=== PATIENT | female | born 1940 | race Caucasian/White ===

== ENCOUNTER 2016-10-22 08:12 | Inpatient (IN) ==
--- NOTE | 2016-10-21 21:27 | Discharge Summary ---
<Thelma Ortario Weberh - Last Filed: 10/23/16 06:17> Date of Encounter: 10/23/16 - Discharge Diagnosis (1) Arthritis of knee, left Priority: Primary Status: Acute (2) HTN (hypertension) Priority: Secondary Status: Chronic Qualifiers: Hypertension type: essential hypertension Qualified Code(s): I10 - Essential (primary) hypertension (3) Obesity Priority: Secondary Status: Chronic Qualifiers: Obesity type: unspecified obesity type Obesity severity: unspecified obesity severity Qualified Code(s): E66.9 - Obesity, unspecified (4) Acute blood loss anemia Priority: Primary Status: Acute - Discharge Medications Home Medications: Alendronate Sodium [Fosamax] 70 mg PO QWEEK 01/05/16 [History] Gabapentin [Neurontin] 300 mg PO TID 01/05/16 [History] Irbesartan [Avapro] 300 mg PO PRN PRN 01/05/16 [History] Metoprolol Succinate 100 mg PO BID 01/05/16 [History] Omeprazole [PriLOSEC] 20 mg PO BID 01/05/16 [History] Triamterene/HCTZ 37.5/25mg [Dyazide] 1 tab PO DAILY 01/05/16 [History] Aspirin 81 mg PO DAILY 10/22/16 [History] Allergies/Adverse Reactions: Allergies Penicillins Adverse Reaction (Mild, Verified 10/23/16 11:09) Hives Sulfa (Sulfonamide Antibiotics) Adverse Reaction (Mild, Verified 10/23/16 11:09) Dizziness cefdinir Adverse Reaction (Verified 10/23/16 11:09) Hives clindamycin Adverse Reaction (Verified 10/23/16 11:09) Nausea Primary care physician: Montana Enriquez, - Patient Status Disposition: Transfer Inpatient Rehab Fac Condition: Good - Discharge Instructions Follow Up With: Montana Enriquez MD [Primary Care Provider] - Additional Instructions: Discharge Instructions: Total Knee Replacement Please call [facility] ([phone]), your Primary Care Physician, or report to the Emergency Room if you have any of the following symptoms: Nausea, vomiting, fever greater that 101.5, swelling, chest pain, shortness of breath, increased pain/redness/drainage/odor for your incision site, numbness/ tingling, or any other concerning symptoms. ACTIVITY:Weight-bearing as tolerated. You may progress off support (crutches or walker) as tolerated. MEDICATIONS: Upon discharge resume your home medications. Take all the medications as prescribed. Take a stool softener if taking narcotic pain medications. Stool softeners are only effective if you drink enough fluids. Drink 6-8 glass of water or fluids a day, unless this is not allowed for another health problem. Despite using stool softeners, if you haven't had a bowel movement in 3 days, please switch to a gentle laxative. Gentle laxatives are sold over the counter. You should have a bowel movement within 24 hours, if not call the office. You will be discharged from the hospital with a prescription for pain medication. You are encouraged to decrease the use of narcotic pain medication as tolerated. Should you require a refill, please call the office. [facility] prescribes narcotic pain medication for only 4-6 weeks after surgery. If you require pain medication beyond this time period, you may be referred to your Primary Care Physician or to the Pain Clinic for further evaluation. Plan ahead for refills on pain medication as many narcotics either need to be picked up at the office or mailed. It is best to call 48-72 hours in advance of needing a prescription refill so you don't run out of medication. To help control the post-operative pain, you may take NSAIDs (Aleve,Advil, Motrin, Ibuprofen, Naprosyn) or Tylenol as prescribed on the bottle in addition to the pain medication. ANTICOAGULATION (blood thinners): Continue your Aspirin, Lovenox or Coumadin as prescribed to help prevent a blood clot in the leg or in the lungs. As long as your incision remains dry and you tolerate the NSAIDs (Aleve, Advil, Motrin, ibuprofen, naprosyn), it is OK to use the NSAIDS while you are taking your anticoagulation medication. Should your incision start to drain, stop the NSAID and contact our office. Common symptoms of blood clot in the legs include: localized pain, swelling, calf tenderness, redness or discoloration of the skin. Blood clot in the lung symptoms include: shortness of breath, rapid pulse, sweating, and chest pain that worsens with deep breathing, coughing up blood, lightheadedness, feelings of anxiety. If you experience any of these symptoms notify your physician immediately, go to the emergency room, or if having trouble breathing, call 911. WOUND CARE: Leave the dressing on for 7 to 10days. You may change the dressing if it becomes saturated greater than 50%. Do not get the dressing wet at anytime. Wash your hands with antibacterial soap, rinse and dry prior to any wound care. If you have ariel the visiting nurse or rehab facility can remove the stapes 10-14 days after surgery and place steri-strips across the wound. Leave the steri-strips in place until they fall off on their won. You may let water from the shower run on top of the steri-strips. If you do not have a visiting nurse or rehab facility, you will need to return to the office at 10-14 days for the ariel to be removed. If you have itching or redness around the dressing call the office. FOLLOW-UP: Please follow up with your surgeon in the orthopedic clinic in 4 weeks from the day of surgery. If you have ariel that need to be removed, you will need to come back to the office in 10-14 days from the day of surgery. - Hospital Course Hospital course: Ms. Mcdonnell is a 76 year old female - Time Spent with Patient Total time spent providing and/or coordinating discharge services: <Viji Greenwood - Last Filed: 10/28/16 20:32> Date of Encounter: 10/25/16 Time of Encounter: 20:32 - Discharge Diagnosis (1) Arthritis of knee, left Priority: Primary Status: Acute (2) HTN (hypertension) Priority: Secondary Status: Chronic Qualifiers: Hypertension type: essential hypertension Qualified Code(s): I10 - Essential (primary) hypertension (3) Obesity Priority: Secondary Status: Chronic Qualifiers: Obesity type: unspecified obesity type Obesity severity: unspecified obesity severity Qualified Code(s): E66.9 - Obesity, unspecified Primary care physician: Montana Enriquez, - Patient Status Functional capacity at discharge: uses cane/walker Overall status at discharge: patient is back to baseline - Hospital Course Hospital course: Ms. Mcdonnell is a 76 year old female - Time Spent with Patient Total time spent providing and/or coordinating discharge services:
[2016-10-22] MEDS ORDERED: Famotidine 20 MG/2 ML VIAL IVP ONE (08:50)
[2016-10-22] MEDS ORDERED: Gabapentin 300 MG CAPSULE PO ONE (08:51)
--- NOTE | 2016-10-22 08:54 | History & Physical Report ---
Date of Encounter: 10/22/16 Time of Encounter: 08:54 24 Hour HP Update - Instructions Instructions: If the History and Physical is less than 30 days old and was completed prior to A.M. admission and or procedure and has NOT been updated on calendar day of procedure please complete this update prior to performing procedure. - Update Patient reports changes in Medical Condition: No Changes in examination, assessment, or condition: No Changes in Medication: No Preop tests/diagnostics Reviewed: Yes Surgery Remains Indicated: Yes Consent for Planned Operative Procedure(s) Verified: Yes - Pre-Operative Checklist Preoperative Checklist Indicated: No Prophylactic Antibiotic Ordered: Yes Is VTE Prophylaxis Indicated?: Yes
--- NOTE | 2016-10-22 08:59 | Anesthesia Evaluation PreOp ---
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 History: Denies Any Significant HX Other Medical History: GERD Anesthesia History: No Prior Anesthetic Complications : No Alcohol Use: none Drug use: none Medications and Allergies Acetaminophen [Tylenol] 500 mg PO Q6HR PRN 01/05/16 [History] Alendronate Sodium [Fosamax] 70 mg PO QWEEK 01/05/16 [History] Gabapentin [Neurontin] 300 mg PO TID 01/05/16 [History] Irbesartan [Avapro] 300 mg PO DAILY 01/05/16 [History] Lovastatin 40 mg PO DAILY 01/05/16 [History] Metoprolol Succinate 100 mg PO BID 01/05/16 [History] Omeprazole [PriLOSEC] 20 mg PO DAILY 01/05/16 [History] Triamterene/HCTZ 37.5/25mg [Dyazide] 1 tab PO DAILY 01/05/16 [History] Aspirin Enteric Coated [Aspirin EC] 325 mg PO DAILY #21 tablet. 10/21/16 [Rx] OxyCODONE Immed Rel [Roxicodone 5 MG] 5 - 10 mg PO Q6HR PRN #40 tablet 10/21/16 [Rx] Allergies Sulfa (Sulfonamide Antibiotics) Adverse Reaction (Verified 01/05/16 07:22) Dizziness - Meds/Allergy Pre-op Review Medications Reviewed: Yes Allergies Reviewed: Yes Beta Blockers on Current Med List: Yes (Took Metoprolol today 0630) Anesthesia Results - Labs Laboratory Tests 10/09/16 10/09/16 11:15 11:15 Hgb 11.2 L Hct 36.2 Plt Count 192 Sodium 138 Potassium 4.1 BUN 21 H Creatinine 0.91 - Imaging EKG: report reviewed (SB) Anesthesia Exam O2 Sat Height 1.65 m Weight 85.729 kg Height: 5'5 Weight: 189 lbs NPO (# of Hours): MN Pain Scale: 0 - HEENT Pupil (Motor): Pupils equal, EOMI Mallampati: II Teeth: Normal Oral Opening: Greater than 3 - BOTANICAL TECHNICAL OFFICER LOC: Oriented BOTANICAL TECHNICAL OFFICER Motor: Normal RUE, Normal LUE, Normal RLE, Normal LLE, Normal Face BOTANICAL TECHNICAL OFFICER Sensory: Normal: RUE, LUE, RLE, LLE, Face - Cardiac Rhythm: Regular Murmur: None JVD: No Carotid Bruit: No - Pulmonary Breath Sounds: bilateral Clear Respiratory Effort: Symmetrical Anesthesia Assess/Plan ASA Score: 3 Modified [place] Scale for Level of Consciousness: Cooperative, oriented, and tranquil Anesthetic Plan: General, Regional Monitoring Plan: Standard Monitors Recovery Plan: PACU (Discussed GA and RA, agrees to proceed)
[2016-10-22] MEDS ORDERED: Ringers Solution, Lactated 1,000 ML IVC SCH ×3 (09:00→13:34)
[2016-10-22] MEDS ORDERED: Albuterol 2.5 MG/3 ML NEBULIZER ONE (09:15)
[2016-10-22] MEDS ORDERED: Vancomycin 1,250 MG in D5% in Water 250 ML IVPB ONE (09:25)
[2016-10-22] MEDS ORDERED: Lidocaine -MPF 1% 2 ML VIAL ID ONE (09:25)
[2016-10-22] MEDS ORDERED: Albuterol 2.5 MG/3 ML NEBULIZER IH ONE (09:25)
[2016-10-22] MEDS ORDERED: ROPIVACAINE HCL/PF 0.5% 30 ML VIAL ONE (09:43)
[2016-10-22] MEDS ORDERED: Bupivacaine/Clonidine Syringe 1 EACH SYRINGE ONE (09:44)
[2016-10-22] MEDS ORDERED: Tetracaine/PF 20 MG/2 ML AMPUL ONE (09:53)
--- NOTE | 2016-10-22 10:28 | Anesthesia Procedures ---
Date of Encounter: 10/22/16 Time of Encounter: 10:00 Procedures: Anesthesia - Nerve Block Procedure Date: 10/22/16 Time: 10:00 Allergies/Adv Reactions: sulfa, clindamycin, pcn, cefdinir Pre-op Diagnosis: left knee arthritis Surgical Procedure: left total knee Checklist: Correct Patient Identifier, Correct procedure, History checked Correct side: Left Blood Thinner: No Monitor Applied: EKG, BP, Pulse Oximetry Supplemental Oxygen via Nasal Cannula (L/min): 2 Sedation: Versed (mg): 2 Sedation: Fentanyl (mcg): 50 Indication: Post Op Analgesia Pre-op Neuro Deficits: No Block Type: Femoral, Other (I-pack) Catheter placed: No Sterile Technique: Yes Ultrasound used: Yes Anatomy identified: Yes Visual spread of Local: Yes Neuro Stimulation: Yes Nerve Stimulator Range: 0.2 - 0.4 mA Blood on Needle Aspiration: No Smooth Injection of Local: Yes Pain with Injection of Local: No Prep: Chlorhexadine Needle: 22 x 50 mm Stimuplex, 21 x 100 mm Stimuplex Local: 0.25% Bupivicaine w/Clonidine 20 mcg/cc (with i pack), Ropivacaine (0.5 % plain 30 ml for femoral) Volume (cc): 50 Number of Attempts: 1 Complications: None/effective block Vitals: 3 Vital Signs Time 1000 1015 BP 147/87 185/64 Pulse 52 53 Resp 16 16 O2 Sat 99 100
[2016-10-22] MEDS ORDERED: *HR* Midazolam HCl 2 MG/2 ML VIAL ONE (11:29)
[2016-10-22] MEDS ORDERED: *HR* Propofol 200 MG/20 ML VIAL IVP ONE (11:29)
[2016-10-22] MEDS ORDERED: *HR* FentaNYL (PF) 100 MCG/2 ML VIAL ONE (11:29)
[2016-10-22] MEDS ORDERED: Lidocaine -MPF 2% 2 ML VIAL ONE (11:29)
[2016-10-22] MEDS ORDERED: Ondansetron 4 MG/2 ML VIAL ONE (11:30)
[2016-10-22] MEDS ORDERED: Dexamethasone 4 MG/ML VIAL ONE (11:30)
[2016-10-22] MEDS ORDERED: Ondansetron 4 MG/2 ML VIAL IVP PRN ×2 (11:33→13:34)
--- NOTE | 2016-10-22 11:43 | Orthopedic Operative Note ---
Date of procedure: 10/22/16 Pre-op diagnosis: Left knee arthritis Post-op diagnosis: same Procedure: Procedure: Left Total knee replacement Estimated blood loss: 200 cc Hardware: Metal and polyethylene replacement. Arthrex Femur: 6 Tibia: 4 PS insert: 13 Patella: 30 Exam Under anesthesia: Full flexion and extension, no instability, valgus alignment. Procedural Notes: Grade 3 arthritic changes patellofemoral joint and lateral compartment. Operative procedure: The patient was brought to the operating room and placed on the operating room table. After general anesthesia was administered the operative knee was examined. Findings were noted in the exam under anesthesia. The operative extremity was prepped and draped in sterile surgical fashion. The patient received IV antibiotics prior to skin incision. A standard midline incision was made centered over the patella. The incision was made through the skin and subcutaneous tissue. A medial parapatellar tendon approach was performed. Care was taken to preserve tissue along the medial aspect of the patella. And to protect the patella tendon. The deep MCL was released off the medial tibia. The infra patella fat pad was excised. Knee was brought into flexion. Patient noted to have grade 3 arthritic changes patellofemoral joint and lateral compartment. The entry hole was made for the intramedullary femoral guide. The guide was seated in 6 degrees of valgus. Anterior cut was made followed by the distal cut. The ACL the PCL the medial and the lateral menisci were excised. The tibia was subluxed forward. The entry hole was made for the intramedullary tibial guide. Guide was seated to resect 2 mm off the more abnormal side. The knee was brought into flexion the distal femur was sized to a 6. The femoral guide was seated, the anterior cut was made followed by the posterior condylar cut, followed by the chamfer cuts. The finishing guide was seated the box cut was made and the lug holes were drilled. The tibia was sized to a 4, the tibial tray was seated and prepared with the large drill followed by the fin cutter. Trial reduction revealed full extension no varus valgus instability with the appropriate 13 PS Radha. The patella was everted and cut was made at the level of the insertion of the quadriceps and patella tendon. The patella was sized to a 30 the guide was seated and the lug holes are drilled. Trial reduction revealed excellent patella tracking. All trial components were removed all bony surfaces were irrigated. The tibia was cemented first followed by the femur. The 13 PS Radha was seated and the knee was brought into full extension. The patella was cemented and held in place with the patellar holding clamp. After the cement had hardened, the knee sat for 2 minutes with a Betadine saline solution. The knee was then irrigated out with 2 L of pulse irrigation. The extensor mechanism was closed with #2 FiberWire suture and #2 PDS suture. The subcutaneous tissue was then irrigated and closed deep with #1 PDS suture superficially with 0 PDS suture and skin was closed with skin ariel. The patient was then placed in a sterile dressing and a postoperative brace extubated and transferred to recovery room in stable condition. Anesthesia: YARELIS Surgeon: Brandon Orta Residential Designer: Thi Patterson Condition: stable Disposition: PACU
[2016-10-22] MEDS: *HR* HYDROmorphone (PF) 1 MG/ML SYRINGE IVP PRN ×3 (12:30→12:47)
[2016-10-22] MEDS: *HR* Labetalol 100 MG/20 ML MDV IVP PRN ×2 (12:45→12:55)
--- NOTE | 2016-10-22 13:28 | Anesthesia Evaluation Post Op ---
Date of Encounter: 10/22/16 Time of Encounter: 13:15 - Vital Signs Vital Signs: Vital Signs/O2 Sat/Glucose, Most Current Temp Pulse Resp BP Pulse Ox 10/22/16 13:11 97.9 F 63 16 171/69 97 10/22/16 13:01 58 16 172/64 99 10/22/16 12:51 97.9 F 67 16 171/103 99 10/22/16 12:41 52 16 171/72 100 10/22/16 12:31 63 16 165/58 100 10/22/16 12:21 97.3 F L 68 16 139/75 100 10/22/16 09:59 57 147/87 100 10/22/16 09:31 97.9 F 52 18 181/64 97 - Lungs Lungs: Clear Ascult./Percussion - Airway Airway: Non-obstructed - Cardiovascular Regular Rate - Mental Status Mental Status: Alert & Oriented, Answers Appropriately - Pain Pain Scale: 3 - Nausea Vomiting Nausea Vomiting: Not Present - Hydration Hydration: Ice chips - Discharge PostOp Status: Transfer Patient to floor
[2016-10-22] MEDS ORDERED: Naloxone 0.4 MG/ML INJ IVP PRN (13:34)
[2016-10-22] MEDS ORDERED: (Alendronate Sodium [Fosamax] 70 MG) PO SCH (13:34)
[2016-10-22] MEDS ORDERED: MOM Conc 10 ML UD.LIQ PO PRN (13:34)
[2016-10-22] MEDS ORDERED: *HR* OxyCODONE Immed Rel 5 MG TABLET PO PRN (13:34)
[2016-10-22] MEDS ORDERED: *HR* HYDROmorphone (PF) 1 MG/ML SYRINGE IVP PRN (13:34)
[2016-10-22] MEDS ORDERED: Temazepam 15 MG CAPSULE PO PRN (13:34)
[2016-10-22] MEDS ORDERED: Sennosides 8.6 MG TABLET PO PRN (13:34)
[2016-10-22 13:38] LABS: Hematocrit 33.1 % (35.3-44.9); Hemoglobin 10.4 g/dL (11.5-15.4)
[2016-10-22] MEDS: Gabapentin 300 MG CAPSULE PO SCH ×2 (14:08→20:01)
[2016-10-22] MEDS: *HR* OxyCODONE Immed Rel 5 MG TABLET PO PRN (14:08)
[2016-10-22] MEDS ORDERED: *HR* Enoxaparin 30 MG/0.3 ML SYRINGE SQ SCH (18:00)
[2016-10-22] MEDS: *HR* Enoxaparin 30 MG/0.3 ML SYRINGE SQ SCH (18:12)
[2016-10-22] MEDS ORDERED: *HR* Promethazine 25 MG/ML VIAL ONE (19:45)
[2016-10-22] MEDS: Metoprolol XL (24 HR) Succ 50 MG TAB.ER.24H PO SCH (20:00)
[2016-10-22] MEDS: *HR* Promethazine 25 MG/ML VIAL IVP PRN (20:00)
[2016-10-23] MEDS ORDERED: Vancomycin 1,250 MG in D5% in Water 250 ML IVPB ONE ×2 (00:01→00:30)
[2016-10-23] MEDS: *HR* Enoxaparin 30 MG/0.3 ML SYRINGE SQ SCH ×2 (05:28→16:59)
[2016-10-23 05:39] LABS: Hematocrit 27.2 % (35.3-44.9)
[2016-10-23 05:40] LABS: Hemoglobin 8.7 g/dL (11.5-15.4)
[2016-10-23 06:03] LABS: BUN/Creatinine Ratio 20 (6-26); Blood Urea Nitrogen 16 mg/dL (7-20); Carbon Dioxide 28 mEq/L (19-29); Chloride 99 mEq/L (98-109); Glucose 125 mg/dL (70-99); Osmolality,Calculated 279 (280-300); Potassium 3.9 mEq/L (3.5-4.5); Sodium 133 mEq/L (136-145); eGFR For African Americans > 60 (> 60); eGFR For Non-African Americans > 60 (> 60)
--- NOTE | 2016-10-23 06:18 | Orthopedics Progress Note ---
Date of Encounter: 10/23/16 Time of Encounter: 06:18 - Assessment and Plan (1) Arthritis of knee, left Current Visit: Yes Status: Acute (2) HTN (hypertension) Current Visit: Yes Status: Chronic Qualifiers: Hypertension type: essential hypertension Qualified Code(s): I10 - Essential (primary) hypertension (3) Obesity Current Visit: Yes Status: Chronic Qualifiers: Obesity type: unspecified obesity type Obesity severity: unspecified obesity severity Qualified Code(s): E66.9 - Obesity, unspecified (4) Acute blood loss anemia Current Visit: Yes Status: Acute Subjective Interval history: Patient was seen this morning doing well without complaints. Afebrile vital signs stable. Operative extremity: Neurovascularly intact Dressing clean dry and intact Calves nontender Assessment and plan: Continue with postoperative care Hemoglobin 8.7 transfuse 1 unit Objective Vital signs: Vital Signs Temp Pulse Resp BP Pulse Ox 10/23/16 04:26 97.8 F 51 17 121/47 95 10/22/16 23:45 97.7 F 77 19 162/66 99 10/22/16 19:59 97.8 F 55 17 151/70 95 10/22/16 19:30 95 10/22/16 16:45 97.9 F 55 18 169/84 99 10/22/16 15:40 98.5 F 59 16 158/77 99 10/22/16 14:52 182/83 98 10/22/16 14:40 98.7 F 50 15 150/60 97 10/22/16 14:00 98.6 F 70 16 163/54 100 10/22/16 13:35 98.5 F 51 14 166/68 98 10/22/16 13:11 97.9 F 63 16 171/69 97 10/22/16 13:01 58 16 172/64 99 10/22/16 12:51 97.9 F 67 16 171/103 99 10/22/16 12:41 52 16 171/72 100 10/22/16 12:31 63 16 165/58 100 10/22/16 12:21 97.3 F L 68 16 139/75 100 10/22/16 09:59 57 147/87 100 10/22/16 09:31 97.9 F 52 18 181/64 97 10/22/16 09:16 97.9 F 52 18 181/64 97 Intake and Output 10/22/16 10/22/16 10/23/16 15:59 23:59 07:59 Intake Total 250 / 250 290 / 290 Output Total 200 / 200 600 / 600 Balance 50 / 50 290 / 290 -600 / -600 Intake: IV Fluids 250 / 250 Vancocin 1,250 MG In 250 / 250 Dextrose 5% 250 ML @ 167 mls/hr IVPB ONCE ONE Rx#: [id number] Oral 290 / 290 Output: Urine 600 / 600 Estimated Blood Loss 200 / 200 Other: # Voids 1 Weight 85.729 kg - Labs CBC & BMP: 10/23/16 04:50 10/23/16 04:50 Labs: Abnormal lab results Hgb 8.7 g/dL (11.5-15.4) L D 10/23/16 04:50 Hct 27.2 % (35.3-44.9) L 10/23/16 04:50 Sodium 133 mEq/L (136-145) L 10/23/16 04:50 Glucose 125 mg/dL (70-99) H 10/23/16 04:50 Calculated Osmolality 279 (280-300) L 10/23/16 04:50 Calcium 8.0 mg/dL (8.6-10.8) L 10/23/16 04:50 - VTE Documentation of Mechanical Device: Venous foot pump, device Consult Discharge Plan - Plan Referrals: Montana Enriquez MD [Primary Care Provider] -
[2016-10-23] MEDS ORDERED: Furosemide 20 MG/2 ML VIAL IVP ONE ×2 (06:21→15:15)
[2016-10-23] MEDS: Metoprolol XL (24 HR) Succ 50 MG TAB.ER.24H PO SCH ×2 (07:53→20:42)
[2016-10-23] MEDS: Aspirin 81 MG TAB.CHEW PO SCH (07:59)
[2016-10-23] MEDS: Gabapentin 300 MG CAPSULE PO SCH ×3 (07:59→20:43)
[2016-10-23] MEDS ORDERED: Alendronate Sodium [Fosamax] 70 MG PO SCH (09:00)
[2016-10-23] MEDS ORDERED: 0.9 % Sodium Chloride 250 ML ONE (10:25)
[2016-10-23] MEDS: *HR* OxyCODONE Immed Rel 5 MG TABLET PO PRN ×2 (15:22→20:42)
[2016-10-23] MEDS: *HR* Promethazine 25 MG/ML VIAL IVP PRN (16:59)
[2016-10-24] MEDS: *HR* OxyCODONE Immed Rel 5 MG TABLET PO PRN ×3 (05:21→17:50)
[2016-10-24] MEDS: *HR* Enoxaparin 30 MG/0.3 ML SYRINGE SQ SCH ×2 (05:22→16:44)
[2016-10-24 06:19] LABS: Hematocrit 30.7 % (35.3-44.9); Hemoglobin 9.8 g/dL (11.5-15.4)
[2016-10-24 06:59] LABS: Potassium 3.5 mEq/L (3.5-4.5)
--- NOTE | 2016-10-24 08:09 | Orthopedics Progress Note ---
Date of Encounter: 10/24/16 Time of Encounter: 08:08 - Assessment and Plan (1) Arthritis of knee, left Current Visit: Yes Status: Acute (2) HTN (hypertension) Current Visit: Yes Status: Chronic Qualifiers: Hypertension type: essential hypertension Qualified Code(s): I10 - Essential (primary) hypertension (3) Obesity Current Visit: Yes Status: Chronic Qualifiers: Obesity type: unspecified obesity type Obesity severity: unspecified obesity severity Qualified Code(s): E66.9 - Obesity, unspecified (4) Acute blood loss anemia Current Visit: Yes Status: Acute Subjective Interval history: Patient was seen this morning doing well without complaints. Afebrile vital signs stable. Operative extremity: Neurovascularly intact Dressing clean dry and intact Calves nontender Assessment and plan: Continue with postoperative care Hematocrit 30 Objective Vital signs: Vital Signs Temp Pulse Resp BP Pulse Ox 10/24/16 06:41 98.8 F 63 16 159/83 99 10/23/16 23:40 99.0 F 59 15 171/71 98 10/23/16 18:44 98 F 64 17 166/70 96 10/23/16 17:19 97.7 F 58 17 144/80 94 10/23/16 14:05 99.0 F 61 16 121/70 99 10/23/16 12:00 98.2 F 58 16 135/65 96 10/23/16 11:03 97.8 F 56 12 125/52 95 10/23/16 10:48 98.0 F 55 14 117/55 10/23/16 09:30 98.7 F 54 16 151/77 98 Intake and Output 10/23/16 10/24/16 10/24/16 23:59 07:59 15:59 Intake Total 640 / 640 550 / 550 Output Total 200 / 200 150 / 150 Balance 440 / 440 400 / 400 Intake: Oral 640 / 640 550 / 550 Output: Urine 200 / 200 150 / 150 Other: Meal Dinner Percent of Meal Consumed 10% # Voids 1 - Labs CBC & BMP: 10/24/16 05:41 10/24/16 05:41 Labs: Abnormal lab results Hgb 9.8 g/dL (11.5-15.4) L 10/24/16 05:41 Hct 30.7 % (35.3-44.9) L 10/24/16 05:41 Sodium 130 mEq/L (136-145) L 10/24/16 05:41 Chloride 95 mEq/L (98-109) L 10/24/16 05:41 Creatinine 1.19 mg/dL (0.57-1.11) H 10/24/16 05:41 Est GFR ( Amer) 53 (> 60) L 10/24/16 05:41 Est GFR (Non-Af Amer) 44 (> 60) L 10/24/16 05:41 Glucose 116 mg/dL (70-99) H 10/24/16 05:41 Calculated Osmolality 273 (280-300) L 10/24/16 05:41 Calcium 8.0 mg/dL (8.6-10.8) L 10/24/16 05:41 - VTE Documentation of Mechanical Device: Venous foot pump, device Consult Discharge Plan - Plan Referrals: Montana Enriquez MD [Primary Care Provider] -
[2016-10-24] MEDS: Aspirin 81 MG TAB.CHEW PO SCH (08:41)
[2016-10-24] MEDS: Gabapentin 300 MG CAPSULE PO SCH ×2 (08:41→15:11)
[2016-10-24] MEDS: Metoprolol XL (24 HR) Succ 50 MG TAB.ER.24H PO SCH (08:41)
[2016-10-24 16:27] VITALS: BP 149/68
== END 2016-10-24 18:51 | DRG 470 ==
LOC: SAMDAY 08:12 → 3NENU 13:34
PROVIDERS: ADMIT Orthopaedic Surgery; ATTEND Orthopaedic Surgery